=== PATIENT | female | born 1960 | race Caucasian/White ===

== ENCOUNTER 2023-02-20 10:21 | Day surgery (SDC) | payer OTHER ==
[2023-02-20] MEDS ORDERED: Decadron 4 MG INJ IV ONE (10:22)
[2023-02-20] MEDS ORDERED: Depo-Medrol 40 MG/ML IM ONE (10:22)
[2023-02-20] MEDS ORDERED: LIDOCAINE HCL 1% 50 MG/5 ML VL PF IJ ONE (10:22)
[2023-02-20] MEDS ORDERED: BUPIVACAINE 0.5% VIAL IJ ONE (10:22)
[2023-02-20] MEDS ORDERED: DIPRIVAN 200 MG/20 ML IV ONE (12:06)
--- NOTE | 2023-02-20 13:44 | XRAY ---
Indication: Left hip and left piriformis injection. Intraoperative fluoroscopy provided for 18 seconds. 3 digital spot images submitted for interpretation demonstrates posterior needle tip projecting over the left piriformis muscle. Second needle tip lateral to left femur neck. Small amount of contrast injected for both needle tip placement. Correlate with intraoperative findings/report.
[2023-02-20] MEDS ORDERED: Lactated Ringers 1,000 ML IV ONE (16:46)
--- NOTE | 2023-02-20 20:13 | XRAY ---
18 seconds of fluoroscopy was used in surgery for a left intra-articular hip and left piriformis injection.
== END 2023-02-20 12:40 | disposition home or self-care (01) ==
LOC: SDC-PAIN 10:21
PROVIDERS: ATTEND Psychiatry & Neurology Pain Medicine
DX: M16.12 Unilateral primary osteoarthritis, left hip (principal); M79.18 Myalgia, other site; Z79.899 Other long term (current) drug therapy
CPT/HCPCS: 20552; 20610; 73501; 77002; J1030; J1100; J2001; J2704; Q9966

== ENCOUNTER 2023-03-14 08:00 | Day surgery (SDC) | payer OTHER ==
[2023-03-14] MEDS ORDERED: Sodium Chloride 0.9(Preservative Free) 10 ML IJ ONE (08:01)
[2023-03-14] MEDS ORDERED: Depo-Medrol 40 MG/ML IM ONE (08:01)
[2023-03-14] MEDS ORDERED: Versed 2 MG/2 ML Injection ONE (08:58)
[2023-03-14] MEDS ORDERED: DIPRIVAN 200 MG/20 ML IV ONE (08:58)
--- NOTE | 2023-03-14 09:50 | XRAY ---
Indication: Right L4-S1 transforaminal IRVING. Intraoperative fluoroscopy provided for 24 seconds. 4 digital spot images submitted for interpretation demonstrates posterior needle tips projecting over the expected right L4 and L5 nerve roots. Small amount of contrast injected for needle tip placement. Correlate with intraoperative findings/report.
--- NOTE | 2023-03-14 10:03 | XRAY ---
24 seconds of fluoroscopy was used in surgery for a right L4-S1 transforaminal IRVING.
[2023-03-14] MEDS ORDERED: Lactated Ringers 1,000 ML IV ONE (10:07)
== END 2023-03-14 09:24 | disposition home or self-care (01) ==
LOC: SDC-PAIN 08:00
PROVIDERS: ATTEND Psychiatry & Neurology Pain Medicine
DX: M54.16 Radiculopathy, lumbar region (principal); Z79.899 Other long term (current) drug therapy
CPT/HCPCS: 64483; 64484; 72100; 77003; J1030; J2250; J2704; Q9966